=== PATIENT | male | born 1990 | race African-American/Black ===

== ENCOUNTER 2019-01-05 09:59 | Emergency (ER) | payer MEDICAID ==
[~2019-01-05] VITALS: Ht 172.7 cm; Wt 59.0 kg
[2019-01-05] MEDS ORDERED: NKM (10:12)
[2019-01-05 10:22] VITALS: BP 100/65
[2019-01-05] MEDS ORDERED: ACETAMINOPHEN-1 EAC1 ORAL (10:51)
[2019-01-05] MEDS ORDERED: IBUPROFEN600 MG ORAL (10:51)
[2019-01-05 11:00] VITALS: BP 100/65
--- NOTE | 2019-01-05 11:04 | Emergency Room Report ---
History of Present Illness General Chief Complaint: Upper Extremity Injury Source: Patient Present Illness HPI 88-year-old male presents ED for evaluation. Complaining of left hand pain. States that one week ago he punched a wall. States that he went to another ER and had x-rays done. States he was "not told anything" but was placed in a splint she states was very uncomfortable so he took it off. Is here to have further evaluation and possible re-splinting. Pain is throbbing, 7 out of 10, nonradiating. Denies any other injuries. No other aggravating relieving factors. Denies any other associated symptoms Allergies: Coded Allergies: No Known Allergies (Unverified , 01/05/19) Patient History Past Medical History: none Past Surgical History: none Pertinent Family History: none Social History: Denies: smoking, alcohol use, drug use Immunizations: UTD Reviewed Nursing Documentation: PMH: Agreed; PSxH: Agreed Nursing Documentation-PMH Past Medical History: No Stated History Review of Systems All Other Systems: negative except mentioned in HPI Physical Exam Vital Signs Date Time Temp Pulse Resp B/P (MAP) Pulse Ox O2 Delivery O2 Flow Rate FiO2 01/05/19 10:08 97.5 45 16 103/66 (78) 95 Room Air Sp02 EP Interpretation: reviewed, normal General Appearance: no apparent distress, alert, GCS 15, non-toxic Head: normocephalic Eyes: bilateral eye normal inspection, bilateral eye PERRL ENT: normal ENT inspection Neck: normal inspection Respiratory: normal inspection Cardiovascular #1: normal inspection Gastrointestinal: normal inspection Rectal: deferred Genitourinary: no CVA tenderness Musculoskeletal: decreased range of motion, tender - 5th digit L hand Neurologic: alert, oriented x3, responsive, motor strength/tone normal, sensory intact, speech normal Psychiatric: normal inspection Skin: normal inspection Lymphatic: normal inspection Procedures Splinting Splinting : Consent: Verbal Hand-Made Type: plaster Splint: ulnar Pre-Proc Neuro Vasc Exam: normal Post-Proc Neuro Vasc Exam: normal Patient Tolerated: Well Complications: None Medical Decision Making Diagnostic Impression: Primary Impression: Boxers fracture Qualified Codes: S62.339D - Displaced fracture of neck of unspecified metacarpal bone, subsequent encounter for fracture with routine healing ER Course Hospital Course 28-year-old male presents with left hand pain. Seen at another ED and placed in splint last week. Differential diagnoses include: Fracture, dislocation, sprain, contusion Clinical course Patient placed on stretcher. After initial history and physical, I ordered xrays of L hand Xrays prelim read shows dwayne fx 5th metacarpal Discussed findings with patient. Neurovascularly intact. Placed in ulnar gutter splint. Safe for discharge with close outpatient follow-up. Will provide orthopedic referrals Diagnosis - boxers fracture Stable and discharged to home with prescription for Motrin, tylenol #3 apply ice , keep elevated. Followup with PMD/ortho. Return to ED if symptoms recur or worsen Other X-Ray Diagnostic Results Other X-Ray Diagnostic Results : X-Ray ordered: L hand # of Views/Limited Vs Complete: 3 View Indication: Pain EP Interpretation: Yes Interpretation: no dislocation, no soft tissue swelling, other - fx base 5th metacarpal Impression: Other - boxers fracture Electronically Signed by: Electronically signed by Bert Queen MD Last Vital Signs Date Time Temp Pulse Resp B/P (MAP) Pulse Ox O2 Delivery O2 Flow Rate FiO2 01/05/19 10:22 97.5 52 15 100/65 98 Room Air Status: improved Disposition: HOME, SELF-CARE Condition: Stable Scripts Acetaminophen With Codeine (T#3) (TYLENOL #3 TAB*) Y Tab 1 TAB ORAL Q8H PRN for For Pain, #12 TAB Prov: Bert Queen MD 01/05/19 Ibuprofen* (MOTRIN*) 600 Mg Tablet 600 MG ORAL Q8H PRN for For Pain, #30 TAB 0 Refills Prov: Bert Queen MD 01/05/19 Referrals: NOT CHOSEN IPA/,REFERRING (PCP) [facility] Open 24 hour /7 days a week by Appointment Only [address] [facility] [id number] Patient Instructions: Boxer's Fracture-SportsMed Bert Queen MD Jan 05, 2019 11:04
--- NOTE | 2019-01-05 16:08 | Diagnostic Imaging Report ---
Indication: Pain, trauma one week ago Technique: 3 views left hand Comparison: none Findings: There is a posteriorly angulated fracture of the base of the fifth metacarpal. This is posteriorly displaced by about one bone width. No other acute fractures. No dislocations. Impression: Positive for fifth metacarpal base fracture. This agrees with the preliminary interpretation reported by the emergency room physician in the electronic medical record
== END 2019-01-05 11:04 | disposition home or self-care (01) ==
LOC: EMR 10:40
DX: S62.339D Displaced fracture of neck of unspecified metacarpal bone, subsequent encounter for fracture with routine healing (principal); W22.8XXD Striking against or struck by other objects, subsequent encounter
CPT/HCPCS: 29125; 99283